=== PATIENT | female | born 1985 | race African-American/Black ===

== ENCOUNTER 2023-01-20 12:39 | Emergency (ER) | payer OTHER ==
--- NOTE | 2023-01-20 13:40 | RAD REPORT ---
EXAM DESCRIPTION: US - Abdomen Exam Limited - 01/20/2023 1:34 pm CLINICAL HISTORY: Abdominal pain. COMPARISON: None. FINDINGS: The gallbladder wall is not thickened. A gallstone is not seen. The biliary tree is normal caliber. IMPRESSION: Unremarkable gallbladder ultrasound.
[2023-01-20 13:53] LABS: Absolute Lymphocytes (CBC) 1.7 K/uL (0.7-4.9); Hematocrit 36.9 % (36.0-45.0); Lymphocytes % 22.8 % (15.3-44.8); MCV 87.8 fL (80-100); MPV 8.1 fL (7.6-11.3)
[2023-01-20] MEDS ORDERED: KETOROLAC 30 MG/ML INJ ONE (13:58)
[2023-01-20] MEDS ORDERED: ONDANSETRON 4 MG/2 ML VIAL ONE (13:58)
[2023-01-20] MEDS ORDERED: FAMOTIDINE 20 MG/2 ML VIAL IV ONE (13:59)
[2023-01-20] MEDS ORDERED: NA CHLORIDE 0.9% 1,000 ML ONE (13:59)
[2023-01-20 14:10] LABS: Albumin 3.7 g/dL (3.4-5.0); Bilirubin Total 0.3 mg/dL (0.2-1.0); Potassium 4.6 mmol/L (3.5-5.1); Protein, Total 7.7 g/dL (6.4-8.2)
--- NOTE | 2023-01-20 15:04 | EDPHYS ---
Physician Documentation [facility] Name: Malena Nicholas Age: 37 yrs Sex: Female : 1985 Arrival Date: 01/20/2023 Time: 12:43 Bed Treatment Private MD: ED Physician Farhat Montoya HPI: 01/20 15:03 This 37 yrs old Black Female presents to ER via Ambulatory with complaints of Abdominal kb Pain, Nausea. 15:03 The patient presents with abdominal pain in the upper abdomen. Onset: The kb symptoms/episode began/occurred 3 month(s) ago, and became worse last night. The symptoms do not radiate. Associated signs and symptoms: Pertinent positives: nausea, Pertinent negatives: constipation, diarrhea, fever, vomiting. The symptoms are described as intermittent. Modifying factors: The symptoms are alleviated by nothing, the symptoms are aggravated by nothing. Severity of pain: At its worst the pain was moderate in the emergency department the pain has improved. The patient has not experienced similar symptoms in the past. The patient has not recently seen a physician. Historical: - Allergies: 12:59 benzoperoxide (topical); iw - Home Meds: 12:59 Prilosec 20 mg Oral cpDR 1 cap once daily [Active]; Pepcid Oral once daily [Active]; iw Iron CR 250 mg Oral cpER [Active]; - PMHx: 12:59 None; iw - PSHx: 12:59 None; iw - Immunization history:: Client reports having NOT received the Covid vaccine. - Social history:: Smoking status: . ROS: 14:56 Constitutional: Negative for fever, chills, and weight loss. kb 14:56 Abdomen/GI: Positive for abdominal pain, nausea. 14:56 All other systems are negative. Exam: 15:02 Constitutional: This is a well developed, well nourished patient who is awake, alert, kb and in no acute distress. Head/Face: Normocephalic, atraumatic. ENT: Moist Mucous membranes Cardiovascular: Regular rate and rhythm with a normal S1 and S2. No gallops, murmurs, or rubs. No pulse deficits. Respiratory: Respirations even and unlabored. No increased work of breathing. Talking in full sentences Skin: Warm, dry with normal turgor. Normal color. MS/ Extremity: Pulses equal, no cyanosis. Neurovascular intact. Full, normal range of motion. Neuro: Awake and alert, GCS 15, oriented to person, place, time, and situation. Moves all extremities. Normal gait. 15:02 Abdomen/GI: Inspection: abdomen appears normal, Bowel sounds: normal, in all quadrants, Palpation: soft, in all quadrants, mild abdominal tenderness, in the right upper quadrant and left upper quadrant. Vital Signs: 12:57 BP 116 / 64; Pulse 94; Resp 16; Temp 98.4; Pulse Ox 100% on R/A; Weight 98.43 kg; iw Height 5 ft. 4 in. (162.56 cm); Pain 5/10; 15:40 BP 122 / 89; Pulse 82; Resp 18; Pulse Ox 100% on R/A; mb9 12:57 Body Mass Index 37.25 (98.43 kg, 162.56 cm) iw MDM: 13:07 Patient medically screened. kb 15:00 Differential diagnosis: cholecystitis, Cholelithiasis, gastroesophageal reflux disease, kb non-specific abd pain. Data reviewed: vital signs, nurses notes. External Records Reviewed: Outpatient radiology: EGD report reviewed - normal exam. Counseling: I had a detailed discussion with the patient and/or guardian regarding: the historical points, exam findings, and any diagnostic results supporting the discharge/admit diagnosis, lab results, radiology results, the need for outpatient follow up, a sampler ovens, to return to the emergency department if symptoms worsen or persist or if there are any questions or concerns that arise at home. ED course: Patient is a 37-year-old female with no medical history who presents for upper abdominal pain that started months ago. states has been intermittent, a burning pain and sometimes has nausea as well. On exam patient has mild tenderness to right and left upper quadrants. Serum labs obtained and are within normal limits. Ultrasound done to rule out cholelithiasis/cholecystitis which was unremarkable. Patient educated on diagnostic results and given printed copy. Educated to follow-up with GI for further evaluation and management. Patient in agreement with plan of care.. 01/20 13:12 Order name: CBC with Diff kb 01/20 13:12 Order name: CMP kb 01/20 13:12 Order name: Lipase kb 01/20 13:55 Order name: CBC with Automated Diff; Complete Time: 13:57 EDMS 01/20 14:11 Order name: Comprehensive Metabolic Panel; Complete Time: 14:14 EDMS 01/20 14:11 Order name: Lipase; Complete Time: 14:14 EDMS 01/20 13:12 Order name: Abdomen Limited US kb 01/20 13:12 Order name: IV Saline Lock; Complete Time: 13:48 kb 01/20 13:12 Order name: Labs collected and sent; Complete Time: 13:48 kb 01/20 13:40 Order name: US; Complete Time: 13:41 EDMS Administered Medications: 14:10 Drug: NS 0.9% 1000 ml Route: IV; Rate: 1 bolus; Site: right antecubital; iw 14:10 Drug: Pepcid (famotidine) 20 mg Route: IVP; Site: right antecubital; iw 14:11 Drug: TORadol - (ketorolac) 15 mg Route: IVP; Site: right antecubital; iw 14:11 Drug: Zofran (Ondansetron) 4 mg Route: IVP; Site: right antecubital; iw Disposition: 16:06 Co-signature as Attending Physician, Farhat Montoya MD I agree with the assessment and kdr plan of care. Disposition Summary: 01/20/23 15:04 Discharge Ordered Location: Home kb Condition: Stable kb Diagnosis - Upper abdominal pain, unspecified kb Followup: kb - With: Private Physician - When: 2 - 3 days - Reason: Recheck today's complaints, Continuance of care, Re-evaluation by your physician Followup: kb - With: Emergency Department - When: As needed - Reason: Worsening of condition Discharge Instructions: - Discharge Summary Sheet kb - Abdominal Pain, Adult, [id number] kb Forms: - Medication Reconciliation Form kb - Thank You Letter kb - Antibiotic Education kb - Prescription Opioid Use kb Prescriptions: - ondansetron 4 mg Oral - take 1 tablet by SUBLINGUAL route every 8 hours As needed; 15 tablet; Refills: kb 0, Product Selection Permitted Signatures: Dispatcher [employer] EDMS Guerline Marcelino, BELL PERSON-C BELL PERSON-Farhat Dorsey MD MD kdr Williams, Irene RN RN iw
--- NOTE | 2023-01-20 15:04 | ER ---
Nurse's Notes [facility] Name: Malena Nicholas Age: 37 yrs Sex: Female : 1985 Arrival Date: 01/20/2023 Time: 12:43 Bed Treatment Private MD: Diagnosis: Upper abdominal pain, unspecified Presentation: 01/20 12:57 Chief complaint: Patient states: severe stomach pain, nausea, heartburn, pain in back iw between shoulder blades been going on for a couple months, last night it was worse. Coronavirus screen: At this time, the client does not indicate any symptoms associated with coronavirus-19. Ebola Screen: Patient negative for fever greater than or equal to 101.5 degrees Fahrenheit, and additional compatible Ebola Virus Disease symptoms Patient denies exposure to infectious person. Patient denies travel to an Ebola-affected area in the 21 days before illness onset. No symptoms or risks identified at this time. Initial Sepsis Screen: Does the patient meet any 2 criteria? No. Patient's initial sepsis screen is negative. Does the patient have a suspected source of infection? No. Patient's initial sepsis screen is negative. Risk Assessment: Do you want to hurt yourself or someone else? Patient reports no desire to harm self or others. Onset of symptoms was December 2022. 12:57 Method Of Arrival: Ambulatory iw 12:57 Acuity: NAV 3 iw Historical: - Allergies: 12:59 benzoperoxide (topical); iw - Home Meds: 12:59 Prilosec 20 mg Oral cpDR 1 cap once daily [Active]; Pepcid Oral once daily [Active]; iw Iron CR 250 mg Oral cpER [Active]; - PMHx: 12:59 None; iw - PSHx: 12:59 None; iw - Immunization history:: Client reports having NOT received the Covid vaccine. - Social history:: Smoking status: . Screenin:11 [facility] ED Fall Risk Assessment (Adult) Score/Fall Risk Level 0 - 2 = Low Risk. Abuse iw screen: Denies threats or abuse. Denies injuries from another. Nutritional screening: No deficits noted. Tuberculosis screening: No symptoms or risk factors identified. Assessment: 14:11 Reassessment: Patient appears in no apparent distress at this time. Patient and/or iw family updated on plan of care and expected duration. Pain level reassessed. Patient is alert, oriented x 3, equal unlabored respirations, skin warm/dry/pink. 15:40 Reassessment: Patient and/or family updated on plan of care and expected duration. Pain mb9 level reassessed. Patient is alert, oriented x 3, equal unlabored respirations, skin warm/dry/pink. Patient states feeling better. Patient states symptoms have improved. Vital Signs: 12:57 BP 116 / 64; Pulse 94; Resp 16; Temp 98.4; Pulse Ox 100% on R/A; Weight 98.43 kg; iw Height 5 ft. 4 in. (162.56 cm); Pain 5/10; 15:40 BP 122 / 89; Pulse 82; Resp 18; Pulse Ox 100% on R/A; mb9 12:57 Body Mass Index 37.25 (98.43 kg, 162.56 cm) iw ED Course: 12:43 Patient arrived in ED. am2 12:58 Guerline Marcelino FNP-C [facility]. kb 12:58 Farhat Montoya MD is Attending Physician. kb 12:59 Triage completed. iw 13:00 Arm band placed on. iw 13:48 Anusha Boss, RN is Primary Nurse. iw 13:48 Initial lab(s) drawn, by me, sent to lab. Inserted saline lock: 22 gauge in right iw antecubital area, using aseptic technique. Blood collected. 15:39 No provider procedures requiring assistance completed. IV discontinued. IV mb9 discontinued, intact, bleeding controlled, No redness/swelling at site. Pressure dressing applied. Administered Medications: 14:10 Drug: NS 0.9% 1000 ml Route: IV; Rate: 1 bolus; Site: right antecubital; iw 14:10 Drug: Pepcid (famotidine) 20 mg Route: IVP; Site: right antecubital; iw 14:11 Drug: TORadol - (ketorolac) 15 mg Route: IVP; Site: right antecubital; iw 14:11 Drug: Zofran (Ondansetron) 4 mg Route: IVP; Site: right antecubital; iw Medication: 15:39 VIS not applicable for this client. mb9 Outcome: 15:04 Discharge ordered by . kb 15:39 Discharged to home ambulatory. mb9 15:39 Condition: stable 15:39 Discharge instructions given to patient, Instructed on discharge instructions, follow up and referral plans. Demonstrated understanding of instructions, follow-up care, medications, Prescriptions given X 1. 15:40 Patient left the ED. mb9 Signatures: Guerline Marcelino, CONCRETE INSPECTOR-C CONCRETE INSPECTOR-CkAnusha Mosquera, RN Linda Degroot Mary Beth, RN RN [id number]
[2023-01-20 16:09] VITALS: TEMP 98.4; O2SAT 100
[2023-01-20 16:26] VITALS: BP 122/89
== END 2023-01-20 15:40 | disposition home or self-care (01) ==
LOC: ER 12:39
DX: R10.11 Right upper quadrant pain (principal); R10.12 Left upper quadrant pain; Z88.8 Allergy status to other drugs, medicaments and biological substances
CPT/HCPCS: 85025; 36415; 83690; 80053; 76705; 96375; 96374; 99284; J7030; J2405